=== PATIENT | male | born 1945 | race Caucasian/White ===

== ENCOUNTER → 2016-06-04 | Outpatient (REF) | payer MEDICARE, BC ==
[~2016-06-04] MED LIST: /WARF25TA OR; /WARF5TA OR; EYE CAPS PO; FLOMAX PO; LISI10TA4 OR; METF500T4 OR; MULTLIQ7 PO; OSTEO BI FLEX PO; PERC5TAB8 OR
== END ==
LOC: EEVIPCON 14:58 → M SFHCPLAZ 14:58
PROVIDERS: ATTEND Internal Medicine Infectious Disease
DX: A49.02 Methicillin resistant Staphylococcus aureus infection, unspecified site (principal)
CPT/HCPCS: 87070; 87077; 87186; G0463

== ENCOUNTER → 2016-07-14 | Outpatient (REF) | payer MEDICARE, BC | LOC: M SFHCPLAZ 13:00 | PROVIDERS: ATTEND Internal Medicine Infectious Disease | DX: A49.02 Methicillin resistant Staphylococcus aureus infection, unspecified site (principal) | CPT/HCPCS: 87081; G0463 ==

== ENCOUNTER → 2018-09-24 | Outpatient (REF) ==
[~2018-09-24] MED LIST changes: -/WARF25TA OR; -/WARF5TA OR; +COUM1TAB17 OR; +COUM1TAB18 OR
== END ==
LOC: M LAB LCGH 12:53
PROVIDERS: ATTEND Hospitalist
DX: J90 Pleural effusion, not elsewhere classified (principal)

== ENCOUNTER → 2021-04-30 | Outpatient (REF) | payer MEDICARE, BC | LOC: M LAB REF 17:43 | PROVIDERS: ATTEND Dermatology | DX: C44.329 Squamous cell carcinoma of skin of other parts of face (principal); L72.0 Epidermal cyst ==

== ENCOUNTER → 2021-08-02 | Outpatient (REF) | payer MEDICARE, BC | LOC: M SFHCDERM 14:41 | PROVIDERS: ATTEND Dermatology | DX: C44.219 Basal cell carcinoma of skin of left ear and external auricular canal (principal) ==